=== PATIENT | female | born 1935 | race Caucasian/White ===

== ENCOUNTER → 2016-03-19 | Outpatient (CLI) | payer MEDICARE | LOC: CARL-LAB 11:25 | DX: Z79.01 Long term (current) use of anticoagulants (principal); Z51.81 Encounter for therapeutic drug level monitoring ==

== ENCOUNTER → 2016-04-09 | Outpatient (CLI) | payer MEDICARE | LOC: CARL-LAB 11:12 | DX: Z79.01 Long term (current) use of anticoagulants (principal) ==